=== PATIENT | male | born 1955 | race Caucasian/White ===

== ENCOUNTER 2017-04-13 19:23 | Emergency (ER) | payer SELFPAY ==
[~2017-04-13] VITALS: Wt 72.6 kg
[~2017-04-13 19:23] MED LIST: "\\\"MUSCLE RELAXER\\\""; AUGMENTIN 500 M1 TAB PO; FLEXERIL5 MG PO; KEFLEX500 MG PO; MOBIC7.5 MG PO; MOTRIN800 MG PO; NAPROSYN500 MG PO; NASONEX0.05 MG/AC NS; NKHM; NORFLEX100 MG PO; PEPCID20 MG PO; PERCOCET 325 MG1 TA5 PO; PREDNICOT20 MG PO; PREDNISONE20 MG PO; SKELAXIN800 MG PO; VIBRAMYCIN100 MG PO; VICODIN 5/500 505 MG PO; VICODIN ES 7501 TAB PO; VOLTAREN50 M1 PO; ZYRTEC10 MG PO
[2017-04-13] MEDS ORDERED: MEDROL DOSEPAK4 MG PO (20:38)
[2017-04-13] MEDS ORDERED: NORCO 5-325 TA1 EACH PO (20:38)
[2017-04-13] MEDS ORDERED: CYCLOBENZAPRINE10 MG PO (20:38)
== END 2017-04-13 20:44 | disposition home or self-care (01) ==
LOC: ED 19:23
DX: G89.29 Other chronic pain (principal); M54.5 Low back pain; F17.200 Nicotine dependence, unspecified, uncomplicated; Z79.899 Other long term (current) drug therapy

== ENCOUNTER 2017-11-10 15:26 | Emergency (ER) | payer SELFPAY ==
[~2017-11-10] VITALS: Ht 172.7 cm; Wt 70.3 kg
[~2017-11-10 15:26] MED LIST changes: +CYCLOBENZAPRINE10 MG PO; +MEDROL DOSEPAK4 MG PO; +NORCO 5-325 TA1 EACH PO
[2017-11-10 16:22] LABS: BASO % 0.6 % (0.0-1.0); EOS # 0.2 10*3/uL (0.0-0.4); EOS % 4.6 % (1.0-4.0); HEMATOCRIT 40.6 % (42.0-52.0); HEMOGLOBIN 13.6 g/dl (14.0-18.0); LYMPH # 1.2 10*3/uL (1.3-4.4); MEAN CELL VOLUME 93.5 fl (80.0-94.0); MEAN CORPUSCULAR HGB 31.3 pg (27.0-31.0); MEAN CORPUSCULAR HGB CONC 33.5 g/dl (33.0-37.0); MEAN PLATELET VOLUME 9.6 fl (9.6-12.3); MONO # 0.4 10*3/uL (0.1-1.0); MONO % 7.2 % (3.0-9.0); NEUT # 3.1 10*3/uL (2.3-7.9); NEUT % 63.6 % (47.0-73.0); PLATELET COUNT AUTOMATED 269 10*3/uL (130-400); RED BLOOD COUNT 4.34 10*6/uL (4.50-5.90); RED CELL DISTRI WIDTH 13.2 % (0-14.5); WHITE BLOOD COUNT 4.8 10*3/uL (4.8-10.8)
[2017-11-10 16:40] LABS: ALBUMIN 3.6 gm/dl (3.1-4.5); ALKALINE PHOSPHATASE 81 U/L (45-117); BUN 6 mg/dl (7-24); CHLORIDE 110 mmol/L (98-107); CREATININE 0.83 mg/dL (0.70-1.30); POTASSIUM 3.6 mmol/L (3.5-5.1); SGOT/AST 13 IU/L (3-35); SGPT/ALT 18 U/L (12-78); SODIUM 142 mmol/L (136-145); TOTAL PROTEIN 6.8 gm/dL (6.4-8.2)
[2017-11-10 16:41] LABS: TROPONIN I < 0.015 ng/ml (<0.045)
== END 2017-11-10 19:52 | disposition home or self-care (01) ==
LOC: ED 15:26
PROVIDERS: Family Medicine
DX: E16.1 Other hypoglycemia (principal); G89.29 Other chronic pain